=== PATIENT | female | born 1970 | race Caucasian/White ===

== ENCOUNTER 2020-08-11 12:02 | Emergency (ER) | payer OTHER, SELFPAY ==
--- NOTE | ~2020-08-11 | XR_ITS ---
EXAMINATION: XR knee LT 3V DATE: 08/11/2020 14:01 INDICATION: Left knee pain and swelling. TECHNIQUE: 3 views of left knee were obtained. COMPARISON: None. FINDINGS: There is varus attenuation at the knee. No fracture. There is severe osteoarthritis of medi al and patellofemoral compartments and moderate osteoarthritis of lateral compartment. There is a lar ge knee joint effusion. IMPRESSION: 1. Severe left knee osteoarthritis. 2. Large left knee joint effusion. Reviewed, dictated and finalized at location A.
--- NOTE | ~2020-08-11 | XR_ITS ---
XR knee RT 3V DATE: 08/11/2020 14:01 INDICATION: Right knee pain and swelling TECHNIQUE: 3 views COMPARISON: None FINDINGS: There is tricompartment severe osteoarthritis, particularly at the patellofemoral and media l compartments, with large degenerative cysts of the medial femoral condyle and proximal mid tibia an d medial tibial plateau. There is mild lateral subluxation at the femoral tibial joint. There is suprapatellar knee joint effusion. No fracture or dislocation, periosteal reaction or bone destruction. No radiopaque intra-articular lo ose body or chondrocalcinosis. IMPRESSION: Severe tricompartment osteoarthritis, particularly severe at the medial and patellofemora l compartments Knee joint effusion Reviewed, dictated and finalized at location A. IMPRESSION: Severe tricompartment osteoarthritis, particularly severe at the me dial and patellofemoral compartments Knee joint effusion
[2020-08-11 12:08] VITALS: BP 164/122; PULSE 119; RESP 20; TEMP 36.7; O2SAT 100
--- NOTE | 2020-08-11 13:27 | ED.LOWEXIN ---
HPI - Extremity Injury (Lower) General Chief Complaint: Extremity Injury, Lower Stated Complaint: left knee pain Time Seen by Provider: 08/11/20 13:06 History of Present Illness HPI Narrative: Bilateral knee pain for several months. Significantly worse over the past few weeks. Associated with swelling. Worse with any movement. Seen previously and told that she had severe arthritis and would likely need knee replecements. No fever, trauma. Related Data Home Medications Medication Instructions Recorded Confirmed buprenorphine-naloxone [Suboxone] film 08/11/20 clonidine HCl 08/11/20 zolpidem 08/11/20 Allergies Allergy/AdvReac Type Severity Reaction Status Date / Time acetaminophen Allergy Mild EXT Verified 08/11/20 12:13 SWELLING ketorolac Allergy Mild CRAWLING Verified 08/11/20 12:13 OUT OF SKIN Penicillins Allergy Mild Rash Verified 08/11/20 12:13 propoxyphene Allergy Mild EXT Verified 08/11/20 12:13 SWELLING Review of Systems Review of Systems: All systems reviewed & are unremarkable except as noted in HPI and below Constitutional: Constitutional: Denies fever(s) Respiratory: Respiratory: Denies dyspnea Gastrointestinal: Gastrointestinal: Denies abdominal pain Neurologic: Denies numbness and Denies weakness [facility] Past Medical History Medical History (Updated 08/12/20 @ 14:56 by Martir Hilton MD) Arthritis Social History Social History (Updated 08/12/20 @ 14:56 by Martir Hilton MD) Smoking status: Current every day smoker Exam Const: General: no acute distress and alert Orientation/consciousness: patient oriented x3 HENMT: Head: normal to inspection Resp: Effort & Inspection: normal respiratory effort Auscultation: clear to auscultation bilaterally Cardio: Rate: regular rate Rhythm: regular rhythm Other: 2+ DP bilaterally Neuro: General: patient oriented x3, moves all extremities and no focal motor deficits Speech: normal speech Extrem: Other: Significant swelling to bilateral knee with diffuse joint line tenderness. Mildly increased warmth. No erythema. Course Vital Signs Vital signs: Vital Signs Temperature 36.7 C 08/11/20 12:08 Pulse Rate 119 H 08/11/20 12:08 Respiratory Rate 20 08/11/20 12:08 Blood Pressure 164/122 H 08/11/20 12:08 Pulse Oximetry 100 08/11/20 12:08 Temperature 36.6 C 08/11/20 15:09 Pulse Rate 88 08/11/20 15:09 Respiratory Rate 18 08/11/20 15:09 Blood Pressure 128/88 08/11/20 15:09 Pulse Oximetry 99 08/11/20 15:09 MDM - Extremity Injury (Lower) MDM Narrative Medical decision making narrative: I suspect severe osteo arthritis, although cannot ruleout gout. I attempted arthrocentesis on the right knee and was not able to obtain any fluid. I will start her on a prednisone taper as this would be helpful for osteoarthritis or gout. She does not have erythema, significant warth of the joint or fever to suggest septic joint. Imaging Data Radiologist's impression: ITS Impressions Knee X-Ray 08/11/20 14:02 IMPRESSION: 1. Severe left knee osteoarthritis. 2. Large left knee joint effusion. Knee X-Ray 08/11/20 14:03 IMPRESSION: Severe tricompartment osteoarthritis, particularly severe at the medial and patellofemoral compartments Knee joint effusion Discharge Plan Discharge Clinical Impression: Arthritis, Arthritis of both knees Patient Disposition: Home, Self-Care Condition: Stable Instructions: Arthritis (ED) Prescriptions: New prednisone 10 mg Tablet See Taper mg PO DAILY 15 Days Qty: 45 RF: 0 albuterol sulfate 90 mcg/actuation HFA aerosol inhaler 2 puff inhalation QID PRN (Reason: shortness of breath or wheezing) Qty: 8.5 RF: 1 No Action clonidine HCl 0.1 mg tablet RF: 0 zolpidem 10 mg tablet RF: 0 buprenorphine-naloxone [Suboxone] 8-2 mg film RF: 0 Follow-up/Referrals: Kim Barraza MD [P
[2020-08-11] MEDS: LIDOCAINE HCL 1% LOCAL INJ 20 ML VIAL 5 ML INFILTRATE (14:19)
[2020-08-11] MEDS: predniSONE 20 MG TABLET 40 MG PO (15:08)
[2020-08-11 15:09] VITALS: BP 128/88; PULSE 88; RESP 18; TEMP 36.6; O2SAT 99
== END 2020-08-11 15:11 | disposition home or self-care (01) ==
PROVIDERS: Emergency Provider Emergency Medicine
DX: M17.0 Bilateral primary osteoarthritis of knee (principal); F17.200 Nicotine dependence, unspecified, uncomplicated
CPT/HCPCS: 73562; 99284; J7512

== ENCOUNTER 2020-09-01 11:09 | Emergency (ER) | payer OTHER, SELFPAY ==
[2020-09-01 11:31] VITALS: BP 155/72; PULSE 105; RESP 18; TEMP 36.6; O2SAT 98
--- NOTE | 2020-09-01 13:41 | ED.GENADULT ---
HPI - General Adult General Chief complaint: Extremity Injury, Lower Stated complaint: bilateral knee pain Time Seen by Provider: 09/01/20 12:03 Source: patient Mode of arrival: ambulatory Limitations: no limitations History of Present Illness HPI narrative: Patient presents with chief complaint of worsening arthritic pain to the bilateral knees. Patient states last time this occurred she had a course of prednisone which helped tremendously. Patient states that she has an appointment with her primary care in September. Patient has not seen an cash applications specialist. Patient denies any recent trauma to her knees, falls or other injuries. Patient denies any other symptoms or concerns. Related Data Home Medications Medication Instructions Recorded Confirmed buprenorphine-naloxone [Suboxone] film 08/11/20 clonidine HCl 08/11/20 zolpidem 08/11/20 Allergies Allergy/AdvReac Type Severity Reaction Status Date / Time acetaminophen Allergy Mild EXT Verified 09/01/20 11:34 SWELLING ketorolac Allergy Mild CRAWLING Verified 09/01/20 11:34 OUT OF SKIN Penicillins Allergy Mild Rash Verified 09/01/20 11:34 propoxyphene Allergy Mild EXT Verified 09/01/20 11:34 SWELLING Review of Systems Review of Systems: Narrative: CONSTITUTIONAL: Denies fever, chills, or sweats. EYES: Denies visual changes, redness, or discharge. ENT: Denies rhinorrhea, congestion, sore throat, or otalgia. CARDIOVASCULAR: Denies chest pain, palpitations, or edema. RESPIRATORY: Denies cough or dyspnea. GASTROINTESTINAL: Denies abdominal pain, nausea, vomiting, or diarrhea. GENITOURINARY: Denies dysuria or hematuria. SKIN: Denies rash or itching. MUSCULOSKELETAL: Reports bilateral knee pain NEUROLOGIC: Denies headache, numbness, dizziness, or weakness. PSYCHIATRIC: Denies anxiety or depression. [facility] Past Medical History Medical History (Updated 09/01/20 @ 13:44 by Jian Ziegler PA-C) Arthritis Social History Social History (Updated 08/12/20 @ 14:56 by Martir Hilton MD) Smoking status: Current every day smoker Gender identity (if verbalized by the patient): Female Exam Narrative: Exam Narrative: GENERAL: Well-appearing, well-nourished, and in no acute distress. HEAD: Normocephalic, atraumatic. EYES: PERRLA and EOMI. ENT: Nares clear, no rhinorrhea or epistaxis. Mucous membranes moist. Oropharynx without tonsillar hypertrophy exudate or other lesions. Bilateral TMs pearly cox nonbulging NECK: Supple. No adenopathy or masses. CHEST: No respiratory distress. No tachypnea EXTREMITIES: Pain with range of motion. Chronic appearing swelling to bilateral knees. No erythema or ecchymosis or signs of acute injury. SKIN: Warm, dry, no rash. NEURO: No focal deficits. Alert and oriented x3. PSYCH: Normal mood and affect. Course Vital Signs Vital signs: Vital Signs Temperature 97.8 F 09/01/20 11:31 Pulse Rate 105 H 09/01/20 11:31 Respiratory Rate 18 09/01/20 11:31 Blood Pressure 155/72 H 09/01/20 11:31 Pulse Oximetry 98 09/01/20 11:31 Temperature 97.8 F 09/01/20 11:31 Pulse Rate 105 H 09/01/20 11:31 Respiratory Rate 18 09/01/20 11:31 Blood Pressure 155/72 H 09/01/20 11:31 Pulse Oximetry 98 09/01/20 11:31 Medical Decision Making MDM Narrative Medical decision making narrative: Discussed with patient that we can do a short Medrol Dosepak however she will need to follow-up primary care cash applications specialist for further evaluation and management of her arthritic pains. Patient will not be started on anti-inflammatory as she states she has a reaction to ketorolac. Patient will also be given cyclobenzaprine to help with muscular pain. She has been instructed not to drive or operate heavy machinery while taking this medication. Differential Diagnosis Differential Diagnosis: Fracture, sprain, strain, arthritis, septic joint Vital Signs Vital Signs: Vital Signs Temperature 97.8 F
[2020-09-01 14:01] VITALS: BP 150/70; PULSE 101; RESP 18; O2SAT 97
== END 2020-09-01 14:05 | disposition home or self-care (01) ==
PROVIDERS: Emergency Provider Emergency Medicine; Referring Provider Internal Medicine
DX: M17.0 Bilateral primary osteoarthritis of knee (principal); F17.200 Nicotine dependence, unspecified, uncomplicated
CPT/HCPCS: 99283

== ENCOUNTER 2020-10-07 13:10 | Emergency (ER) | payer OTHER, SELFPAY ==
[2020-10-07 13:41] VITALS: BP 148/66; PULSE 115; RESP 16; TEMP 36.4; O2SAT 97
--- NOTE | 2020-10-07 13:59 | ED.GENADULT ---
HPI - General Adult General Chief complaint: Unspecified Stated complaint: knee pain Time Seen by Provider: 10/07/20 13:37 Source: patient Mode of arrival: ambulatory Limitations: no limitations History of Present Illness HPI narrative: Patient is a 50-year-old female who presents to emergency department for evaluation of wound to the left thigh 9 over the last couple of days she has developed a red tender swollen area with purulent drainage patient notes her boyfriend had similar lesion. Patient denies any fever chills nausea vomiting. Patient also presents requesting medications for her chronic arthralgias. Patient is followed by primary care for these complaints. On arrival patient in no distress Related Data Home Medications Medication Instructions Recorded Confirmed buprenorphine-naloxone [Suboxone] film 08/11/20 clonidine HCl 08/11/20 zolpidem 08/11/20 Allergies Allergy/AdvReac Type Severity Reaction Status Date / Time ketorolac Allergy Mild CRAWLING Verified 10/07/20 13:46 OUT OF SKIN Penicillins Allergy Mild Rash Verified 10/07/20 13:46 propoxyphene Allergy Mild EXT Verified 10/07/20 13:46 SWELLING Review of Systems Review of Systems: All systems reviewed & are unremarkable except as noted in HPI and below PMFSH Past Medical History Medical History (Updated 10/07/20 @ 16:01 by Zeeshan Moss PA-C) Arthritis Narcotic abuse Social History Social History Smoking status: Current every day smoker Gender identity (if verbalized by the patient): Female Exam Narrative: Exam Narrative: GENERAL: Well-appearing, well-nourished, and in no acute distress. HEAD: Normocephalic, atraumatic. EYES: PERRLA and EOMI. ENT: Nares clear, no rhinorrhea or epistaxis. Mucous membranes moist. CHEST: Clear to auscultation. No respiratory distress. No wheezes rales or rhonchi HEART: Regular rate and rhythm. No murmur heard. Normal peripheral pulses. EXTREMITIES: Normal range of motion. No edema. SKIN: Warm, dry, no rash. Patient with red tender swollen fluctuant lesion to the left thigh with surrounding erythema and warmth to touch NEURO: No focal deficits. Alert and oriented x3. Neurovascularly intact PSYCH: Normal mood and affect. Course Course Emergency Course: Patient in the emergency department no distress was given IV antibiotic as well as had I&D of an abscess patient will be discharged home for attempted outpatient therapy noting she will follow with her primary care patient afebrile nontoxic-appearing patient prefers to go home given she has family coming in town patient agrees to return if symptoms worsen patient is nontoxic without emesis and felt appropriate for trial of outpatient therapy patient notes she will marked the wound margins to watch for progression. Vital Signs Vital signs: Vital Signs Temperature 97.5 F L 10/07/20 13:41 Pulse Rate 115 H 10/07/20 13:41 Respiratory Rate 16 10/07/20 13:41 Blood Pressure 148/66 H 10/07/20 13:41 Pulse Oximetry 97 10/07/20 13:41 Temperature 97.5 F L 10/07/20 13:41 Pulse Rate 115 H 10/07/20 13:41 Respiratory Rate 16 10/07/20 13:41 Blood Pressure 148/66 H 10/07/20 13:41 Pulse Oximetry 97 10/07/20 13:41 Procedures Abscess I/D lower extremity: Date of Incision: 10/07/20 Time of Incision: 15:58 Side (if applicable): left (thigh) Local Anesthetic: lidocaine 1% Technique: incised with #11 blade and probed loculations Amount of fluid expressed (mL): 10 Irrigation: Yes Packing used?: iodoform I&D Results: Pus and Blood Complications: pain Medical Decision Making MDM Narrative Medical decision making narrative: Patient in the room at this time will be discharged with follow-up with primary care patient is afebrile nontoxic-appearing agreeing to follow-up as instructed Vital Signs Vital Signs:
[2020-10-07 14:18] LABS: Basophils Percent Auto 0.3 % (0.2-1.2); Eosinophils Absolute Auto 0.2 K/mm3 (0-0.3); Eosinophils Percent Auto 1.5 % (0-4.4); Hematocrit 35.4 % (37.0-47.0); Hemoglobin 11.7 g/dL (12.0-15.0); Immature Granulocyte Absolute 0.08 K/mm3 (0.00-0.031); Immature Granulocyte Percent A 0.5 % (0-0.5); Lymphocytes Percent Auto 19.4 % (18.3-44.2); Mean Corpuscular HGB Conc 33.1 g/dl (32-36); Mean Corpuscular Hemoglobin 29.7 pg (26-34); Mean Corpuscular Volume 89.8 fl (80-100); Monocytes Absolute Auto 0.8 K/mm3 (0.1-0.6); Monocytes Percent Auto 5.4 % (2.6-8.5); Neutrophils Absolute Auto 11.3 K/mm3 (1.3-6.7); Neutrophils Percent Auto 72.9 % (45.5-73.1); Platelet Count Result 359 k/mm3 (150-375); Red Blood Count 3.94 M/mm3 (4.2-5.4); Red Cell Distribution Width 15.2 % (11.5-14.5); White Blood Count 15.4 K/mm3 (4.5-10.0)
[2020-10-07 14:31] LABS: Anion Gap 7 mmol/L (8-16); Blood Urea Nitrogen 24 mg/dL (7-17); Calcium 9.4 mg/dL (8.4-10.2); Carbon Dioxide 32 mmol/L (22-30); Chloride 99 mmol/L (98-107); Estimated CRCL calculation 86 ml/min; Estimated Glomerular Filt Rate > 60; Glucose 96 mg/dL (65-105); Potassium 3.5 mmol/L (3.4-5.0); Sodium 138 mmol/L (137-145)
== END 2020-10-07 16:18 | disposition home or self-care (01) ==
PROVIDERS: Emergency Medicine Emergency Medical Services; Emergency Provider Emergency Medicine
DX: L02.416 Cutaneous abscess of left lower limb (principal); M19.90 Unspecified osteoarthritis, unspecified site; F17.200 Nicotine dependence, unspecified, uncomplicated
CPT/HCPCS: 10061; 36415; 80048; 85025; 87070; 87075; 87147; 87186; 87205; 96365; 99284

== ENCOUNTER 2021-10-20 12:34 | Emergency (ER) | payer OTHER, SELFPAY ==
[2021-10-20 13:35] VITALS: BP 153/97; PULSE 98; RESP 16; TEMP 36.9; O2SAT 98
--- NOTE | 2021-10-20 14:22 | ED.SKABFB ---
HPI - Skin/Abscess/Foreign Bdy General Chief complaint: Skin/Abscess/Foreign Body Stated complaint: right calf cellulites Time Seen by Provider: 10/20/21 14:22 Source: patient Mode of arrival: ambulatory Limitations: no limitations History of Present Illness HPI narrative: Isamar Marinelli is a 51yo female with a PMH of COPD, prior opiate abuse who comes with complaints of lower right calf redness and mild edema over the last 4 days. She has a history of cellulitis in the same calf; she is due for steroid injection on the Also has eczema around her neck from use of hair dye Related Data Home Medications Medication Instructions Recorded Confirmed buprenorphine-naloxone [Suboxone] film 08/11/20 clonidine HCl 08/11/20 zolpidem 08/11/20 Allergies Allergy/AdvReac Type Severity Reaction Status Date / Time ketorolac Allergy Mild CRAWLING Verified 10/20/21 14:31 OUT OF SKIN Penicillins Allergy Mild Rash Verified 10/20/21 14:31 propoxyphene Allergy Mild EXT Verified 10/20/21 14:31 SWELLING Review of Systems Review of Systems: CONSTITUTIONAL: Denies fever, chills, sweats. EYES: Denies visual changes, redness, discharge. ENT: Denies rhinorrhea, congestion, sore throat, otalgia. CARDIOVASCULAR: Denies chest pain, palpitations, edema. RESPIRATORY: Denies dyspnea, wheezing, cough GASTROINTESTINAL: Denies abdominal pain, nausea, vomiting, diarrhea. GENITOURINARY: Denies dysuria, hematuria, abnormal discharge SKIN: Denies rash or itching. Right calf edema and erythema, questionable cellulitis NEUROLOGIC: Denies numbness, or focal weakness. PSYCHIATRIC: Denies anxiety or depression. PMFSH Past Medical History Medical History Arthritis Narcotic abuse Social History Social History Smoking status: Current every day smoker Gender identity (if verbalized by the patient): Female Comments At time of signature, I agree with nursing past medical, surgical, social and family history. There is no relevant family history pertinent to the presenting complaint. Exam Narrative: GENERAL: This is a well-nourished, well-developed patient, in mild distress. HEAD: normocephalic, atraumatic. EYES: Sclera clear/white. Vision is grossly intact. EARS: External ears normal, Hearing grossly intact. NOSE: External nose normal without nasal discharge, THROAT: Mucous membranes moist, NECK: Neck supple, CARDIOVASCULAR: Regular rate and rhythm without murmurs, gallops, or rubs. RESPIRATORY: Clear to auscultation. Breath sounds equal bilaterally. No wheezes, rales, or rhonchi. GASTROINTESTINAL: Abdomen soft, SKIN: warm, intact with no suspicious lesions or rash, good texture and turgor. NEURO: awake, alert, and oriented to person, place and time. There were no obvious focal neurologic abnormalities. Steady gait EXTREMITIES: Normal range of motion. Right lower quadrant calf edema and erythema dimension of about 6 x 4 BACK: Nontender without deformity Course Course Emergency Course: Patient here with redness and swelling of the lower right extremity is concerned that his cellulitis Start on Bactrim DS 1 twice daily x10 days Given hydrocortisone 2% for eczema outbreak around base of neck from hair dye Level of Care: Express Care Visit Vital Signs Vital signs: Vital Signs Temperature 98.4 F 10/20/21 13:35 Pulse Rate 98 10/20/21 13:35 Respiratory Rate 16 10/20/21 13:35 Blood Pressure 153/97 H 10/20/21 13:35 Pulse Oximetry 98 10/20/21 13:35 Temperature 98.4 F 10/20/21 13:35 Pulse Rate 98 10/20/21 13:35 Respiratory Rate 16 10/20/21 13:35 Blood Pressure 153/97 H 10/20/21 13:35 Pulse Oximetry 98 10/20/21 13:35 MDM - Skin/Abscess/Foreign Bdy Differential Diagnosis Differential diagnosis: Likely urticaria, cellulitis, eczema, contact dermatitis and other Critical [facility]
== END 2021-10-20 14:39 | disposition home or self-care (01) ==
PROVIDERS: Emergency Provider Nurse Practitioner
DX: L03.115 Cellulitis of right lower limb (principal); L30.8 Other specified dermatitis; M19.90 Unspecified osteoarthritis, unspecified site; F17.200 Nicotine dependence, unspecified, uncomplicated; J44.9 Chronic obstructive pulmonary disease, unspecified; F11.10 Opioid abuse, uncomplicated
CPT/HCPCS: 99213; G0463

== ENCOUNTER 2022-09-21 14:48 | Emergency (ER) | payer OTHER, SELFPAY ==
--- NOTE | ~2022-09-21 | XR_ITS ---
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 Comparison: None available. RESULT: Lines, tubes, and devices: None. Lungs and pleura: Left lower lung scar, otherwise clear. Cardiomediastinal silhouette: Stable. Other: No acute osseous or upper abdominal finding. IMPRESSION: No acute cardiopulmonary process. Reviewed, dictated and finalized at location K. [employer]NAG[employer]
[2022-09-21 15:12] VITALS: BP 153/71; PULSE 104; RESP 16; TEMP 36.6; O2SAT 94
--- NOTE | 2022-09-21 18:26 | ED.GENADULT ---
HPI - General Adult General Chief complaint: Upper Respiratory Infection Stated complaint: bronchitis Time Seen by Provider: 09/21/22 17:58 History of Present Illness HPI narrative: Patient is a 52-year-old female with history of smoking here for evaluation of shortness of breath over the past 2 weeks. Patient states that she has felt short of breath with minimal exertion over the past 2 weeks which is new for her, and over the past day she has felt short of breath at rest. Patient also notes a productive cough of cloudy sputum. Patient has seen her primary care doctor and was given as needed albuterol inhalers, has not improved her symptoms. No leg swelling, chest pain, fevers or chills. Related Data Home Medications Medication Instructions Recorded Confirmed buprenorphine 8 mg-naloxone 2 mg film 08/11/20 sublingual film (Suboxone) clonidine HCl 0.1 mg tablet 08/11/20 zolpidem 10 mg tablet 08/11/20 Allergies Allergy/AdvReac Type Severity Reaction Status Date / Time ketorolac Allergy Mild CRAWLING Verified 10/20/21 14:31 OUT OF SKIN Penicillins Allergy Mild Rash Verified 10/20/21 14:31 propoxyphene Allergy Mild EXT Verified 10/20/21 14:31 SWELLING Review of Systems Review of Systems: Gen.: Denies fevers or chills Eyes: Denies eye pain or visual change ENT: Denies congestion Respiratory: Reports shortness of breath and cough CV: Denies chest pain or palpitations GI: Denies abdominal pain nausea, emesis or diarrhea denies burning, urgency, frequency or hematuria Musculoskeletal: Denies back pain or muscle pain Neuro: Denies numbness, tingling, weakness or focal weakness Skin: Denies rash Except as documented, all other systems reviewed and negative [facility] Past Medical History Medical History Arthritis Narcotic abuse Social History Social History Smoking status: Current every day smoker Gender identity (if verbalized by the patient): Female Exam Narrative: APPEARANCE: Uncomfortable appearing Head: Normocephalic and atraumatic. EYES: PERRLA/EOMI, conjunctivae clear NOSE: No nasal drainage EARS: External ear normal in appearance THROAT: Oropharynx is clear. Mucous membranes are moist. NECK: Supple. No adenopathy, no masses. RESPIRATORY: Expiratory wheezing noted throughout lung nuñez; no respiratory distress CARDIOVASCULAR: Regular rate and rhythm without murmurs, rubs, or gallops. ABDOMINAL: Normoactive bowel sounds. Soft, nontender, nondistended. No rebound tenderness or guarding. MUSCULOSKELETAL: Extremities are warm and well-perfused. Moves all extremities well. No edema. NEURO: Normal speech. No focal neurologic deficits. SKIN: Skin is warm and dry. No rashes. PSYCHIATRIC: Normal affect/mood. Course Vital Signs Vital signs: Vital Signs Temperature 97.9 F 09/21/22 15:12 Pulse Rate 104 H 09/21/22 15:12 Respiratory Rate 16 09/21/22 15:12 Blood Pressure 153/71 H 09/21/22 15:12 Pulse Oximetry 94 09/21/22 15:12 Oxygen Delivery Room Air 09/21/22 15:12 Temperature 97.9 F 09/21/22 15:12 Pulse Rate 87 09/21/22 18:50 Respiratory Rate 20 09/21/22 18:50 Blood Pressure 153/71 H 09/21/22 15:12 Pulse Oximetry 100 09/21/22 19:09 Oxygen Delivery Room Air 09/21/22 19:09 Medical Decision Making MDM Narrative Medical decision making narrative: 52-year-old female here for evaluation of shortness of breath over the past 2 weeks. Patient slightly tachycardic at 104, satting at low 90s on room air but noted to desat to the high 80s with ambulation. She has diffuse expiratory wheezing on exam. She was given duo nebs in the ED with improvement of her symptoms, states she feels better and wants to go home. Her work-up in the ED is certainly concerning for acute hypoxic respiratory failure, likely due to COPD, however her D-dime
[2022-09-21] MEDS: ALBUTEROL SULFATE NEB 2.5 MG/3 ML INH 5 MG INHALATION (18:49)
[2022-09-21 18:50] VITALS: PULSE 87; RESP 20
[2022-09-21] MEDS: IPRATROPIUM BR 0.02% INH SOLN 0.5 MG/2.5 ML VIAL 1 MG INHALATION (18:50)
[2022-09-21 18:55] LABS: Alveolar/Arterial O2 Gradient 46.9 mmHg; Base Excess ABG 2.1 mEq/l (+/-2.0); Fractional Inspired Oxygen 21 %; HCO3 ABG 26.8 mEq/l (22.0-26.0); Oxygen Content ABG 14.5 %vol (16.0-22.0); PCO2 ABG 42.1 mmHg (35.0-45.0); PO2 ABG 52.4 mmHg (80.0-100.0); Total Hemoglobin 12.1 g/dL (12.0-18.0); pH ABG 7.421 (7.350-7.450)
[2022-09-21 18:56] LABS: Oxygen Saturation ABG 87.7 % (95.0-100.0)
[2022-09-21 18:57] LABS: Device ROOM AIR; Modified Allen's Test Pass; Oxyhemoglobin 85.3 % THb (90.0-100.0); Site Drawn LEFT RADIAL
[2022-09-21 19:08] LABS: Basophils Percent Auto 0.2 % (0.2-1.2); Eosinophils Absolute Auto 0.2 K/mm3 (0-0.3); Eosinophils Percent Auto 2.3 % (0-4.4); Hematocrit 35.1 % (37.0-47.0); Hemoglobin 11.6 g/dL (12.0-15.0); Immature Granulocyte Absolute 0.06 K/mm3 (0.00-0.031); Immature Granulocyte Percent A 0.7 % (0-0.5); Lymphocytes Absolute Auto 2.76 K/mm3 (0.9-3.2); Lymphocytes Percent Auto 33.7 % (18.3-44.2); Mean Corpuscular Hemoglobin 32.6 pg (26-34); Mean Corpuscular Volume 98.6 fl (80-100); Mean Platelet Volume 8.6 fl (7.4-10.4); Monocytes Absolute Auto 0.4 K/mm3 (0.1-0.6); Monocytes Percent Auto 5.1 % (2.6-8.5); Neutrophils Absolute Auto 4.7 K/mm3 (1.3-6.7); Platelet Count Result 253 k/mm3 (150-375); Red Blood Count 3.56 M/mm3 (4.2-5.4); Red Cell Distribution Width 14.1 % (11.5-14.5); White Blood Count 8.2 K/mm3 (4.5-10.0)
[2022-09-21 19:09] VITALS: O2SAT 100
[2022-09-21 19:10] LABS: Influenza A QL RT-PCR Negative (Negative); Influenza B QL RT-PCR Negative (Negative); SARS-CoV-2 RNA PCR Negative
[2022-09-21 19:20] LABS: Alanine Aminotransferase 31 U/L (6-35); Albumin Level 4.5 g/dL (3.5-5.1); Alkaline Phosphatase 99 U/L (38-126); Anion Gap 6 mmol/L (8-16); Aspartate Amino Transferase 28 U/L (14-36); Bilirubin,Total 0.3 mg/dL (0.2-1.3); Blood Urea Nitrogen 14 mg/dL (7-17); Calcium 8.9 mg/dL (8.4-10.2); Carbon Dioxide 31 mmol/L (22-30); Chloride 104 mmol/L (98-107); Estimated CRCL calculation 98 ml/min; Estimated Glomerular Filt Rate > 60; Glucose 96 mg/dL (65-110); Potassium 3.6 mmol/L (3.4-5.0); Sodium 141 mmol/L (137-145)
[2022-09-21 19:22] LABS: D Dimer 0.99 ug/mL (<0.48)
--- NOTE | 2022-09-21 20:13 | PC.NURSE ---
1950- pt called out stating she desires to go home. Alisson ROMERO to bedside to assess pt and inform of benefit/risk of leaving, recommending pt stay for further workup and treatment. Pt desires to leave against medical advice and states will f/u outpatient or return.
== END 2022-09-21 20:05 | disposition left against medical advice (07) ==
PROVIDERS: Emergency Medicine; Emergency Provider Physician Assistant
DX: R06.02 Shortness of breath (principal); Z20.822 Contact with and (suspected) exposure to COVID-19; M19.90 Unspecified osteoarthritis, unspecified site; F17.200 Nicotine dependence, unspecified, uncomplicated
CPT/HCPCS: 36415; 36600; 71046; 80053; 82805; 85025; 85380; 87636; 94640; 99283

== ENCOUNTER 2024-08-23 15:16 | Emergency (ER) | payer OTHER, SELFPAY ==
[2024-08-23 15:25] VITALS: BP 145/92; PULSE 99; RESP 20; TEMP 36.9; O2SAT 90
--- NOTE | 2024-08-23 15:50 | ED.URI ---
HPI - URI/Sore Throat General Chief Complaint: Upper Respiratory Infection Stated Complaint: cough,sob Time Seen by Provider: 08/23/24 15:45 Source: patient and RN notes reviewed Mode of arrival: ambulatory Limitations: no limitations History of Present Illness HPI Narrative: [age] year old old female with history of asthma presents with concern for cough, wheezing, shortness of breath since yesterday. She reports she ran out of her inhaler, she is in between primary care providers, she has an appointment with a new 1 coming up. MD elicited complaint: cough Related Data Home Medications Medication Instructions Recorded Confirmed buprenorphine 8 mg-naloxone 2 mg 8 film sublingual DAILY 08/11/20 08/23/24 sublingual film (Suboxone) zolpidem 10 mg tablet 10 mg PO HS 08/11/20 08/23/24 Allergies Allergy/AdvReac Type Severity Reaction Status Date / Time ketorolac Allergy Mild CRAWLING Verified 08/23/24 15:42 OUT OF SKIN Penicillins Allergy Mild Rash Verified 08/23/24 15:42 propoxyphene Allergy Mild EXT Verified 08/23/24 15:42 SWELLING Review of Systems Review of Systems: CONSTITUTIONAL: Denies malaise, chills, sweats, or fever. EYES: Denies visual changes, redness, or discharge. ENT: Reports rhinorrhea, congestion, sinus pain, otalgia and sore throat. CARDIOVASCULAR: Denies chest pain, palpitations, or edema. RESPIRATORY: Reports cough. Denies dyspnea. GASTROINTESTINAL: Denies abdominal pain, nausea, vomiting, diarrhea SKIN: Denies rash or itching. MUSCULOSKELETAL: Denies myalgia. NEUROLOGIC: Denies headache. All systems reviewed & are unremarkable except as noted in HPI and below PMFSH Past Medical History Medical History Arthritis Narcotic abuse Social History Social History Smoking status: Current every day smoker Gender identity (if verbalized by the patient): Female Comments At time of signature, agree with nursing past medical, surgical, social and family history. There is no relevant family history pertinent to the presenting complaint Exam Narrative: GENERAL: Well-appearing, well-nourished, and in no acute distress. HEAD: Normocephalic EYES: PERRLA, conjunctivae clear ENT: Nares clear, turbinates edematous and erythematous, clear discharge. Mucous membranes moist. TM pearly cox with dull light reflex bilaterally; no tragal tenderness. Oropharynx not erythematous without lesions. Tonsils not enlarged and without exudate, no drooling, no hoarseness, no trismus, uvula midline. NECK: Supple. No lymphadenopathy CHEST: Clear to auscultation, breath sounds equal. No wheezing, rhonchi, rales, or stridor. No respiratory distress, speaks in full sentences. HEART: Regular rate and rhythm. No murmur heard. SKIN: Warm, dry, no rash. NEURO: Alert and oriented x3. PSYCH: Normal mood and affect Course Course Emergency Course: Patient is aware of diagnosis, understands and agrees to treatment plan. Anticipatory guidance given. Patient agrees to follow-up as directed and is aware of reasons to seek care at the emergency department. Portions of this record may have been created with voice recognition software Level of Care: Express Care Visit Reevaluation(s) Reevaluation #1: Wheezing improved, aeration improved. Patient reports she feels much better. Still scattered wheeze noted Date: 08/23/24 Time: 16:19 Vital Signs Vital signs: Vital Signs Temperature 98.5 F 08/23/24 15:25 Pulse Rate 99 08/23/24 15:25 Respiratory Rate 20 08/23/24 15:25 Blood Pressure 145/92 H 08/23/24 15:25 Pulse Oximetry 90 08/23/24 15:25 Temperature 98.5 F 08/23/24 15:25 Pulse Rate 99 08/23/24 15:25 Respiratory Rate 20 08/23/24 15:25 Blood Pressure 145/92 H 08/23/24 15:25 Pulse Oximetry 90 08/23/24 15:25 Reviewed. MDM - URI/Sore Throat MDM Narrative Medical decision making narrative: Differential diagnosis considered: Casey virus, strep pharyngitis, allergic rhinitis, upper respiratory tract infection, sinusitis, rhinosinusitis, nasopharyngitis. viral pharyngitis, otitis media, otitis externa, pneumonia, bronchitis, viral cough syndrome, viral syndrome, and influenza. Exam findings show no acute concerns or changes; patient is non-toxic appearing and is in no distress. Patient is appropriate for outpatient treatment and follow-up. Lab Data Attestation: I reviewed the patient's lab results. Critical Care Time Critical Care Time Critical Care Time: No Discharge Plan Discharge Clinical Impression: Asthma exacerbation Patient Disposition: Home, Self-Care Condition: Stable Instructions: Antibiotic Form, Asthma (ED) Additional Instructions: Take medicines as directed. Visit your primary care doctor if: You have wheezing, shortness of breath, or a cough even if taking medicine to prevent attacks. You have thickening of sputum. Your sputum changes from clear or white to yellow, green, cox, or bloody. You have any problems that may be related to the medicines you are taking (such as a rash, itching, swelling, or trouble breathing). You are using a reliever medicine more than 2 to 3 times per week. Visit the ER if: You are short of breath even at rest or when doing very little physical activity. You develop difficulty eating, drinking, or talking due to asthma symptoms. You have chest pain or you feel that your heart is beating fast. You are lightheaded, dizzy, faint or have bluish lips or fingernails. You have a fever or persistent symptoms for more than 2 to 3 days or symptoms suddenly get worse. You seem to be getting worse and are unresponsive to treatment during an asthma attack. Prescriptions: New azithromycin [Zithromax Z-Luis Armando] 250 mg tablet See Rx Instructions .ROUTE .COMPLEX Qty: 6 0RF Rx Instructions: take 500 mg today (day 1), then 250 mg for 4 days (days 2-5) methylprednisolone [Medrol (Luis Armando)] 4 mg tablets,dose pack See Rx Instructions .ROUTE .COMPLEX Qty: 21 0RF Rx Instructions: orally per package directions albuterol sulfate 90 mcg/actuation HFA aerosol inhaler 2 puff INHALATION QID PRN (Reason: shortness of breath or wheezing) Qty: 8.5 0RF No Action zolpidem 10 mg tablet 10 mg PO HS buprenorphine-naloxone [Suboxone] 8-2 mg film 8 film sublingual DAILY Follow-up/Referrals: PHYSICIAN,MANAGER LATIN [Primary Care Provider] - Time of Disposition: 16:21
[2024-08-23] MEDS: IPRATROPIUM 0.5 MG/ALBUTEROL SULFATE 2.5 MG AMPUL.NEB 3 ML INHALATION (16:03)
--- NOTE | 2024-08-23 16:15 | PC.NURSE ---
PT REPORTS MUCH EASIER TO BREATHE POST NEB TX, PT TOLERATED WELL. WHEEZING HAS GREATLY IMPROVED, SCATTERED WHEEZING NOTED AT THIS TIME.
[2024-08-23 16:25] VITALS: PULSE 98; RESP 18; O2SAT 96
== END 2024-08-23 16:25 | disposition home or self-care (01) ==
PROVIDERS: Emergency Provider Nurse Practitioner
DX: J45.901 Unspecified asthma with (acute) exacerbation (principal); F17.200 Nicotine dependence, unspecified, uncomplicated; M19.90 Unspecified osteoarthritis, unspecified site
CPT/HCPCS: 94640; 99213; G0463